=== PATIENT | male | born 1970 | race Caucasian/White ===

== ENCOUNTER → 2021-02-15 | Outpatient (CLI) | payer BC ==
--- NOTE | 2021-02-16 11:28 | CARD ---
MR#: [id number] Date of Study: 02/15/2021 Ordering Physician: CHANTEL CALVILLO, Referring Physician: CHANTEL CALVILLO, [place]: SHANTELL Monsivais [facility] APPROVED REPORT INDICATION Dyspnea PROCEDURE The patient underwent an Exercise Stress Test using the Francesco Protocol. Blood pressure, heart rate, a nd EKG were monitored. An Echocardiogram was performed by sterile preparation technician in four stages in quad fashion. At peak stress four se lected images were obtained and placed side by side with resting images for comparison. STRESS ECHO FINDINGS The resting Echocardiogram showed normal left ventricular systolic contractility with an estimated Ej ection Fraction of about 55 %. The Resting Echocardiogram showed normal augmentation of myocardial wall segments using a 16 segment model. The Stress Echocardiogram showed normal augmentation of myocardial wall segments using a 16 segment m yas. The Stress Echocardiogram left ventricular systolic contractility has an estimated Ejection Fraction of about 65%. Test Type: Exercise Stress Nurse/Tech: Jazmyn Broussard R.N. Test Indications: JOINER Cardiac History and Allergies: htn Medications: lisinopril Medical History: see EHR Resting Heart Rate: 62 bpm Resting Blood Pressure: 118/55mmHg Pretest Chest Pain: No chest pain Nurse/Tech Notes S1S2, lungs CTA Stress Symptoms SOA POST EXERCISE Reason for Termination: Reached target heart rate Target HR: Yes Max HR: 154 bpm 90% of Maximum Predicted HR: 171 bpm Exercise duration: 10 min:sec, 4 Stage Exercise capacity: 12.8METs Max Blood Pressure: 178/84mmHg Blood Pressure response to exercise: Normal blood pressure response during stress. Heart Rate response to exercise: WNL Chest Pain: No. Arrhythmia: No. INTERPRETATION Stress EKG Conclusion: The resting EKG showed a sinus rhythm and nonspecific T wave changes. The stress EKG showed mild ST-T wave changes that are not diagnostic of ischemia. No EKG evidence of stress-induced ischemia. <Conclusion> Good exercise tolerance with the patient walking for 10 minutes and 4 seconds on a Francesco protocol. No chest pain with exertion. No EKG evidence of stress-induced ischemia or arrhythmias. Normal LV systolic function at rest. Normal LV response to exertion with no regional wall motion abnormalities. Low risk treadmill stress echo. Signed by : Tono Evangelista MD Electronically Approved : 02/16/2021 11:27:41
== END ==
LOC: ECHO 12:43
PROVIDERS: ATTEND Internal Medicine Cardiovascular Disease
DX: R06.09 Other forms of dyspnea (principal)
CPT/HCPCS: 93017; 93350